=== PATIENT | female | born 1945 | race Two or more races ===

== ENCOUNTER 2016-11-09 12:01 | Emergency (ER) | payer MEDICAID, MEDICARE, OTHER ==
[~2016-11-09] VITALS: Ht 162.6 cm; Wt 81.6 kg
[2016-11-09 12:29] VITALS: BP 150/100
== END 2016-11-09 13:02 | disposition left against medical advice (07) ==
LOC: EDUNIT# 12:01 → ER 12:01
DX: M54.2 Cervicalgia (principal); M25.512 Pain in left shoulder; Z53.21 Procedure and treatment not carried out due to patient leaving prior to being seen by health care provider; V48.0XXA Car driver injured in noncollision transport accident in nontraffic accident, initial encounter; Y93.89 Activity, other specified; Y99.8 Other external cause status; Y92.89 Other specified places as the place of occurrence of the external cause

== ENCOUNTER 2024-06-07 19:08 | Emergency (ER) | payer OTHER ==
[~2024-06-07] VITALS: Ht 162.6 cm; Wt 84.8 kg
[2024-06-07 20:10] LABS: Basophils # (auto) 0.1 10 ^3/uL (0-0.2); Basophils % (auto) 1.4 % (0.0-2.0); Eosinophils # (auto) 0.3 10 ^3/uL (0-0.8); Eosinophils % (auto) 3.4 % (0.0-7.0); Hematocrit 40.5 % (36.0-46.0); Hemoglobin 13.5 g/dL (12.2-16.2); Lymphocytes # (auto) 3.2 10 ^3/uL (0.4-5.4); Lymphocytes % (auto) 41.6 % (10.0-50.0); Mean Corpuscular Hemoglobin 29.5 pg (28.0-32.0); Mean Corpuscular Hgb Conc. 33.2 g/dL (32.0-36.0); Mean Corpuscular Volume 88.9 fL (80.0-100.0); Monocytes # (auto) 0.9 10 ^3/uL (0-1.3); Monocytes % (auto) 11.9 % (0.0-12.0); Neutrophils # (auto) 3.3 10 ^3/uL (1.6-8.6); Neutrophils % (auto) 41.7 % (37.0-80.0); Nucleated Red Blood Cells % 0.1 %; Red Blood Cells 4.56 10^6/uL (4.0-5.20); Red Cell Distribution Width 15.7 % (11.8-14.3); White Blood Cell 7.8 10^3/uL (4.4-10.8)
[2024-06-07 20:27] LABS: Alanine Aminotransferase 14 U/L (7-40); Albumin 4.1 g/dL (3.2-4.8); Alkaline Phosphatase 122 U/L (46-116); Anion Gap 7 (5-15); Aspartate Aminotransferase 18 U/L (13-40); BUN/Creatinine Ratio 14.9 (10.0-20.0); Bilirubin, Total 0.3 mg/dL (0.2-1.0); Blood Urea Nitrogen 13 mg/dL (9-23); Calcium 9.5 mg/dL (8.7-10.4); Carbon Dioxide 23 mmol/L (20-30); Chloride 113 mmol/L (98-107); Glucose 98 mg/dL (74-106); Potassium 4.1 mmol/L (3.5-5.1); Sodium 143 mmol/L (136-145)
[2024-06-07 21:04] LABS: INR 1.05 (0.9-1.15); Prothrombin Time 11.1 sec (9.3-11.8)
[2024-06-07 21:52] LABS: Urine Blood 3+ /uL (Negative); Urine Clarity Turbid (Clear); Urine Color Yellow (Yellow); Urine Protein, UAD TRACE (Negative); Urine Specific Gravity 1.021 (1.001-1.035); Urine Urobilinogen 2 mg/dL (Negative)
[2024-06-07] MEDS: IOHEXOL 300 MG/ML 100ML BOTTLE IJ ONE (22:00)
[2024-06-08] MEDS ORDERED: TAMS-35 PO (01:23)
[2024-06-08] MEDS ORDERED: NAP500T GT (01:23)
[2024-06-08] MEDS: TAMSULOSIN HYDROCHLORIDE 0.4 MG CAP PO ONE (01:39)
[2024-06-08 01:42] VITALS: BP 168/96; PULSE 77; RESP 19; TEMP 97.6; O2SAT 98
== END 2024-06-08 02:53 | disposition home or self-care (01) ==
LOC: ER 19:08
DX: N20.0 Calculus of kidney (principal); N23 Unspecified renal colic; I10 Essential (primary) hypertension; E78.5 Hyperlipidemia, unspecified; Z98.890 Other specified postprocedural states; Z88.5 Allergy status to narcotic agent; Z88.6 Allergy status to analgesic agent
CPT/HCPCS: 36415; 74177; 80053; 81003; 85025; 85610; 99285; Q9967